=== PATIENT | male | born 2000 | race Caucasian/White ===

== ENCOUNTER 2021-11-15 15:34 | Emergency (ER) | payer BC, SELFPAY ==
[2021-11-15 15:57] VITALS: BP 106/59; PULSE 79; RESP 16; TEMP 37.6; O2SAT 98
--- NOTE | 2021-11-15 16:40 | ED.GENADULT ---
HPI - General Adult General Chief complaint: Nausea/Vomiting/Diarrhea Stated complaint: nausea Source: patient Mode of arrival: ambulatory Limitations: no limitations History of Present Illness HPI narrative: Patient presents for evaluation of nausea and vomiting. Symptom onset this morning. He states his symptoms are markedly improved and now has mild nausea. He has experienced some suprapubic discomfort that was mild. That has markedly improved. His bowel pattern is unchanged. Last bowel movement was last night, solid in consistency, without the presence of blood or mucus in the stool. No fever, chills, urinary symptoms. No recent sick contacts. No new foods. No recent antibiotic use. No personal history of COVID. He has received COVID vaccination. He smokes marijuana daily. He missed work and is simply requesting a work note. Related Data Home Medications Medication Instructions Recorded Confirmed No Home Medications 11/15/21 11/15/21 Allergies Allergy/AdvReac Type Severity Reaction Status Date / Time shellfish derived Allergy Rash Verified 11/15/21 16:04 Review of Systems Review of Systems: CONSTITUTIONAL: Denies fever, chills, or sweats. EYES: Denies visual changes, redness, or discharge. ENT: Denies rhinorrhea, congestion, sore throat, or otalgia. CARDIOVASCULAR: Denies chest pain, palpitations, or edema. RESPIRATORY: Denies cough or dyspnea. GASTROINTESTINAL: Reports vomiting earlier, now resolved. Reports nausea, which is improving. Reports suprapubic pain, near resolved. GENITOURINARY: Denies dysuria or hematuria. SKIN: Denies rash or itching. MUSCULOSKELETAL: Denies back pain, joint pain, or myalgia. NEUROLOGIC: Denies headache, numbness, dizziness, or weakness. PSYCHIATRIC: Denies anxiety or depression. [facility] Past Medical History Medical History No pertinent past medical history Surgical History Surgical History No pertinent past surgical history Family History Family History Mother Family history non-contributory Social History Social History (Updated 11/15/21 @ 16:44 by Emeterio L.E. Collette, [employer], [place]) Smoking status: Never smoker Substance use: current Substance use type: marijuana Living arrangements: alone Additional occupation/education comments: Works at [employer] Gender identity (if verbalized by the patient): Male Spiritual care concerns: No Exam Narrative: GENERAL: Well-appearing, well-nourished, and in no acute distress. HEAD: Normocephalic, atraumatic. EYES: PERRLA and EOMI. ENT: Nares clear, no rhinorrhea or epistaxis. Mucous membranes moist. Oropharynx without tonsillar hypertrophy exudate or other lesions. Bilateral TMs pearly roche nonbulging NECK: Supple. No adenopathy or masses. No carotid bruits or JVD CHEST: Clear to auscultation. No respiratory distress. No wheezes rales or rhonchi HEART: Regular rate and rhythm. No murmur heard. Normal peripheral pulses. ABDOMEN: Soft, nontender, nondistended, normal active bowel sounds. EXTREMITIES: Normal range of motion. No edema. SKIN: Warm, dry, no rash. NEURO: No focal deficits. Alert and oriented x3. PSYCH: Normal mood and affect. Course Course Emergency Course: This is a 21-year-old male who presented with complaints of nausea and vomiting earlier today. Nausea markedly improved. He has no abdominal pain at the present time. I did offer to perform diagnostic work-up, which she declined. He states he simply came here to get a note to excuse him from work. He was provided with a note. Should follow-up outpatient for further evaluation and treatment. He should go to the ER for worsening symptoms. Patient agreement with plan of care Level of Care: Express Care Visit Vital Signs Vital signs: Vital Signs Temper
== END 2021-11-15 16:44 | disposition home or self-care (01) ==
PROVIDERS: Emergency Provider Nurse Practitioner
DX: R11.2 Nausea with vomiting, unspecified (principal); F12.20 Cannabis dependence, uncomplicated
CPT/HCPCS: 99211; G0463

== ENCOUNTER 2022-07-19 10:53 | Emergency (ER) | payer BC, SELFPAY ==
[2022-07-19 10:56] VITALS: BP 131/68; PULSE 86; RESP 16; TEMP 36.4; O2SAT 100
--- NOTE | 2022-07-19 11:44 | ED.EAR ---
HPI - Ear Problem General Chief complaint: Ear Stated complaint: ear pain Time Seen by Provider: 07/19/22 11:36 Source: patient and RN notes reviewed Mode of arrival: ambulatory Limitations: no limitations History of Present Illness HPI Narrative: 21-year-old male presents concern for right ear fullness and decreased hearing. He reports last night he started having a mild amount of pain. He denies upper respiratory symptoms. Reports he gotten [id number] earwax removal without success. MD Complaint: decreased hearing Related Data Home Medications Medication Instructions Recorded Confirmed No Home Medications 11/15/21 11/15/21 Allergies Allergy/AdvReac Type Severity Reaction Status Date / Time shellfish derived Allergy Rash Verified 11/15/21 16:04 Review of Systems Review of Systems: CONSTITUTIONAL: Denies malaise, chills, sweats, or fever. EYES: Denies visual changes, redness, or discharge. ENT: Denies rhinorrhea, congestion, sinus pain, and sore throat. Reports right ear fullness and discomfort CARDIOVASCULAR: Denies chest pain, palpitations, or edema. RESPIRATORY: Denies cough. Denies dyspnea. GASTROINTESTINAL: Denies abdominal pain, nausea, vomiting, diarrhea SKIN: Denies rash or itching. MUSCULOSKELETAL: Denies myalgia. NEUROLOGIC: Denies headache. All systems reviewed & are unremarkable except as noted in HPI and below PMFSH Past Medical History Medical History (Updated 07/19/22 @ 11:50 by Nadine Sy NP) No pertinent past medical history Surgical History Surgical History No pertinent past surgical history Family History Family History Mother Family history non-contributory Social History Social History (Updated 11/15/21 @ 16:44 by Emeterio Murdock, [facility], ) Smoking status: Never smoker Substance use: current Substance use type: marijuana Additional occupation/education comments: Works at [employer] Gender identity (if verbalized by the patient): Male Spiritual care concerns: No Comments At time of signature, agree with nursing past medical, surgical, social and family history. There is no relevant family history pertinent to the presenting complaint Exam Narrative: GENERAL: Well-appearing, well-nourished, and in no acute distress. HEAD: Normocephalic EYES: PERRLA, conjunctivae clear ENT: Nares clear. Mucous membranes moist. Left TM pearly roche with sharp light reflex, right TM not visible due to excess cerumen; no tragal tenderness. Oropharynx not erythematous without lesions. Tonsils not enlarged and without exudate, no drooling, no hoarseness, no trismus, uvula midline. NECK: Supple. No lymphadenopathy CHEST: Clear to auscultation, breath sounds equal. No wheezing, rhonchi, rales, or stridor. No respiratory distress, speaks in full sentences. HEART: Regular rate and rhythm. No murmur heard. SKIN: Warm, dry, no rash. NEURO: Alert and oriented x3. PSYCH: Normal mood and affect Course Course Emergency Course: Patient is aware of diagnosis, understands and agrees to treatment plan. Anticipatory guidance given. Patient agrees to follow-up as directed and is aware of reasons to seek care at the emergency department. Portions of this record may have been created with voice recognition software Level of Care: Express Care Visit Vital Signs Vital signs: Vital Signs Temperature 97.5 F L 07/19/22 10:56 Pulse Rate 86 07/19/22 10:56 Respiratory Rate 16 07/19/22 10:56 Blood Pressure 131/68 07/19/22 10:56 Pulse Oximetry 100 07/19/22 10:56 Oxygen Delivery Room Air 07/19/22 10:56 Temperature 97.5 F L 07/19/22 10:56 Pulse Rate 86 07/19/22 10:56 Respiratory Rate 16 07/19/22 10:56 Blood Pressure 131/68 07/19/22 10:56 Pulse Oximetry 100 07/19/22 10:56 Oxygen Delivery Room Air 07/19/22 10:56 Reviewed.
== END 2022-07-19 12:06 | disposition home or self-care (01) ==
PROVIDERS: Emergency Provider Nurse Practitioner
DX: H61.21 Impacted cerumen, right ear (principal)
CPT/HCPCS: 69209; 99212; G0463